=== PATIENT | female | born 1975 ===

== ENCOUNTER 2019-12-10 17:58 | Emergency (ER) | payer SELFPAY ==
--- NOTE | 2019-12-10 21:29 | Cat Scan Report ---
NONENHANCED CT SCAN OF THE HEAD: INDICATION / CLINICAL INFORMATION: 44 years Female; trauma. TECHNIQUE: Routine CT head without contrast. All CT scans at this location are performed using CT dos e reduction for ALARA by means of automated exposure control. COMPARISON: None. FINDINGS: BRAIN / INTRACRANIAL CONTENTS: No intracranial sequela from the trauma; minimal thickening of the rig ht parietal scalp; no air-fluid level in the visualized portions of the paranasal sinuses. No acute hemorrhage, mass effect, midline shift, hydrocephalus, or acute, large territorial infarct. No chronic infarct or focal atrophy. Normal brain volume and ventricular/sulcal size for age. No sign ificant white matter abnormality. CRANIOCERVICAL JUNCTION: No significant abnormality. ORBITS: No significant abnormality of visualized orbits. SINUSES / MASTOIDS: No significant abnormality of the visualized paranasal sinuses or mastoid air rebeca ls. ADDITIONAL FINDINGS: None. IMPRESSION: Nose intracranial sequela from the trauma. Signer Name: Shai Hernandez MD Signed: 12/10/2019 9:25 PM Workstation Name: [id number]
--- NOTE | 2019-12-10 21:56 | Emergency Department Report ---
ED Head Trauma HPI - General Chief complaint: Pain General Stated complaint: HIT HEAD/MH Time Seen by Provider: 12/10/19 20:24 Source: EMS Mode of arrival: Stretcher Limitations: Other - History of Present Illness Initial comments: 44-year-old female, currently inpatient at [facility] on a 1013 for suicide attempt, presents to ED for head injury. Patient was reportedly hitting her head against the wall at the facility. No LOC. Patient was given Haldol and Benadryl at [place] for sedation and sent to ED for medical evaluation. Patient reports headache. MD Complaint: head injury -: This evening Mechanism of Injury: other (Hit head against wall) Loss of Consciousness: no Place: other (Psychiatric facility) Severity: mild Consistency: constant Other Injuries: none Associated Symptoms: denies other symptoms - Related Data Allergies/Adverse reactions: Allergies Allergy/AdvReac Type Severity Reaction Status Date / Time No Known Allergies Allergy Unverified 12/10/19 20:07 ED Review of Systems ROS: Stated complaint: HIT HEAD/MH Other details as noted in HPI Comment: All other systems reviewed and negative Neurological: headache ED Past Medical Hx - Past Medical History Hx Psychiatric Treatment: Yes (anxiety, suicide attempt) Additional medical history: chronic back painhyster - Surgical History Past Surgical History?: Yes Additional Surgical History: hysterectomy, trigger finger release, tubal l igation, utereine fibroid surgery - Social History Smoking Status: Current Every Day Smoker Substance Use Type: Alcohol, Prescribed, Methamphetamines ED Physical Exam - General Limitations: Other General appearance: lethargic - Head Head exam: Present: atraumatic, normocephalic - Eye Eye exam: Present: normal appearance, PERRL, EOMI - ENT ENT exam: Present: mucous membranes moist - Neck Neck exam: Present: normal inspection, full ROM - Respiratory Respiratory exam: Present: normal lung sounds bilaterally. Absent: respiratory distress - Cardiovascular Cardiovascular Exam: Present: regular rate, normal rhythm - GI/Abdominal GI/Abdominal exam: Present: soft. Absent: distended, tenderness - Extremities Exam Extremities exam: Present: normal inspection - Neurological Exam Neurological exam: Present: alert, oriented X3, other (lethargic from medication but arousable and appropriate). Absent: motor sensory deficit - Psychiatric Psychiatric exam: Present: normal affect, normal mood - Skin Skin exam: Present: warm, dry, intact, normal color ED Course Vital Signs 12/10/19 20:07 Temperature 98.1 F Pulse Rate 80 Respiratory 18 Rate Blood Pressure 125/83 O2 Sat by Pulse 100 Oximetry - Radiology Data Radiology results: report reviewed, image reviewed - Medical Decision Making 44-year-old female sent to ED for evaluation after purposefully hitting her head against a wall. CT head is negative. Patient is arousable, able to answer questions, moving all extremities. Will discharge back to [place] at this time. - Differential Diagnosis intracranial injury, concussion Critical care attestation.: If time is entered above; I have spent that time in minutes in the direct care of this critically ill patient, excluding procedure time. ED Disposition Clinical Impression: Acute head injury Disposition: - TO HOME OR SELFCARE Is pt being admited?: No Condition: Stable Instructions: Minor Head Injury (ED) Referrals: PRIMARY CARE, [Primary Care Provider] - 3-5 Days Time of Disposition: 22:01
[2019-12-11 01:20] VITALS: BP 118/62
== END 2019-12-11 01:00 | disposition home or self-care (01) ==
LOC: ED 17:58 → EEVIPCON 17:58 → ED 12-11 01:00
DX: T14.91XA Suicide attempt, initial encounter (principal); S09.90XA Unspecified injury of head, initial encounter; Y92.89 Other specified places as the place of occurrence of the external cause
CPT/HCPCS: 70450; 99283